=== PATIENT | male | born 1935 | race Caucasian/White ===

== ENCOUNTER → 2018-01-20 | Day surgery (SDC) | payer MEDICARE, BC ==
[2018-01-19 08:14] VITALS: BMI 26.4
[~2018-01-20] MED LIST: Fentanyl 100 MCG/2 ML VIAL ONE; Midazolam HCl 2 mg/2 ml Vial ONE
[2018-01-20 10:04] LABS: #Basophils 0.1 thou/uL (0.0-0.2); #Eosinphils 0.2 thou/uL (0.0-0.7); #Lymphocytes 2.1 thou/uL (1.20-3.40); #Monocytes 0.7 thou/uL (0.11-0.59); #Neutrophils 5.2 thou/uL (1.40-6.50); %Basophils 1.5 % (0.0-1.0); %Eosinophils 2.6 % (0.0-10.0); %Lymphocytes 24.9 % (21.0-51.0); %Monocytes 8.2 % (0.0-10.0); %Neutrophils 62.8 % (42.0-75.0); Hemoglobin 13.7 g/dL (14.0-18.0); Mean Corpuscular HGB CONC 34.5 g/dL (32.0-36.0); Mean Corpuscular Hemoglobin 33.4 pg (27.0-31.0); Mean Corpuscular Volume 96.8 fl (80.0-94.0); Mean Platelet Volume 6.7 fL (7.4-10.4); Platelet Count 215 thou/uL (130-400); RBC Distribution Width 11.8 % (11.5-14.5); Red Blood Cell (RBC) Count 4.12 mill/uL (4.70-6.10); White Blood Cell (WBC) Count 8.3 thou/uL (4.8-10.8)
[2018-01-20 10:24] LABS: Anion Gap 12 mmol/L (10-20); BUN (Urea Nitrogen) 17 mg/dL (8.4-25.7); Calc. Creatinine Clearance 72 mL/min (70-130); Calcium 9.2 mg/dL (7.8-10.44); Carbon Dioxide 26 mmol/L (23-31); Chloride 103 mmol/L (98-107); Estimated GFR-MDRD 69; Glucose 202 mg/dL (83-110); Potassium 4.5 mmol/L (3.5-5.1); Sodium 136 mmol/L (136-145)
--- NOTE | 2018-01-20 12:08 | RAD ---
LUMBAR SPINE THREE VIEWS: HISTORY: Low back pain. FINDINGS: Vertebral body heights are maintained. There is osteophytosis throughout the vertebral bodies and fa cets. Spondylolisthesis at the L4-L5 level is 0.4 cm while neutral and upon extension. It increases to 0.9 cm upon flexion. Disk space narrowing and minimal degenerative retrolisthesis at the L2-L3 level do es not change upon flexion or extension. There is calcification over the arterial structures. IMPRESSION: 1. Lumbar spondylosis with translational motion at the L4-L5 level, as detailed above. 2. Atherosclerosis. POS: JENNIFER
--- NOTE | 2018-01-20 14:09 | MRI ---
MRI LUMBAR SPINE WITHOUT CONTRAST: HISTORY: New onset low back pain. Bilateral foot numbness x6 months. COMPARISON: None. TECHNIQUE: An MRI of the lumbar spine is performed without intravenous Gadolinium administration. Multisequenti al, multiplanar imaging is performed. FINDINGS: Appropriate T1 marrow signal intensity of the lumbar vertebrae. Lumbar spine vertebral body height i s maintained. There is no fracture. No significant STIR hyperintensity to suggest edema or ligament ous injury. There is 4.4 mm of anterolisthesis of L4 upon L5. Symmetric signal intensity of the psoas muscles. Exophytic T2 hyperintensity emanating from the left kidney, compatible with a cyst. The conus medullaris terminates at the mid L1 level. T12-L1: Adequate disk hydration. No significant central canal stenosis or foraminal narrowing. L1-L2: Disk desiccation with minimal loss of disk space height. No significant posterior disk abnor mality. Ligamentum flavum thickening and facet hypertrophy are present. Overall, there is mild cent ral canal stenosis. Mild bilateral foraminal narrowing. L2-L3: Desiccation without significant loss of disk space height. Generalized disk bulge, ligamentu m flavum thickening, and facet hypertrophy result in mild central canal stenosis. Mild bilateral for aminal narrowing. L3-L4: Desiccation with mild loss of disk space height. No significant posterior disk abnormality. Mild ligamentum flavum thickening and facet hypertrophy are present. Mild central canal stenosis. Mild bilateral foraminal narrowing. L4-L5: Desiccation with mid loss of disk space height. Generalized disk bulge, ligamentum flavum th ickening, and spondylolisthesis results in severe central canal stenosis. There is bilateral facet h ypertrophy with a small amount of fluid in both intraarticular facet joints. Moderate bilateral for aminal narrowing. L5-S1: There is a central and left subarticular disk bulge. Disk material abuts and slightly displa luis miguel the traversing left S1 nerve root. There is a small linear T2 hyperintensity at the level of the disk bulge, suggesting an annular fissure. No high grade central canal stenosis. Mild right and mil d to moderate left foraminal narrowing. IMPRESSION: Degenerative changes of the lumbar spine at L4-L5 and at L5-S1 as detailed above. POS: JENNIFER
--- NOTE | 2018-01-22 08:53 | EKG ---
Test Reason : PREOP Blood Pressure : / mmHG Vent. Rate : 079 BPM Atrial Rate : 079 BPM P-R Int : 162 ms QRS Dur : 086 ms QT Int : 382 ms P-R-T Axes : -04 -27 041 degrees QTc Int : 438 ms Normal sinus rhythm Normal ECG When compared with ECG of 07-DEC-2013 08:37, Sinus rhythm has replaced Atrial flutter Confirmed by JOSELITO LOBATO, PARUL ([id number]) on 01/22/2018 8:52:49 AM Referred By: TINY Confirmed By:PARUL YEE MD
== END ==
LOC: SDC/OP 09:29
PROVIDERS: ATTEND Neurological Surgery
DX: M47.16 Other spondylosis with myelopathy, lumbar region (principal); I70.90 Unspecified atherosclerosis; Z88.8 Allergy status to other drugs, medicaments and biological substances; Z79.82 Long term (current) use of aspirin; Z79.4 Long term (current) use of insulin; Z79.899 Other long term (current) drug therapy
CPT/HCPCS: 36415; 72100; 72148; 80048; 85025; 93005; 93010; J2250; J3010

== ENCOUNTER 2019-01-23 11:46 | Outpatient (CLI) | payer MEDICARE, BC | END 2019-01-23 11:47 | disposition home or self-care (01) | LOC: CP 11:46 | PROVIDERS: ATTEND Internal Medicine Critical Care Medicine | DX: J84.10 Pulmonary fibrosis, unspecified (principal) | CPT/HCPCS: 94060; 94727 ==

== ENCOUNTER 2019-07-26 12:45 | Outpatient (CLI) | payer MEDICARE, BC ==
--- NOTE | 2019-07-26 13:04 | RAD ---
Exam: Chest 2 views HISTORY:Dyspnea Comparison: 09/05/2018 FINDINGS: Lungs: Bilateral interstitial prominence remains Cardiac silhouette:Stable Pulmonary vessels: No significant vascular congestion Pleural Spaces: Stable blunting of left lateral costophrenic sulcus with elevation of left hemidiaphr agm. Pneumothorax: None Osseous abnormalities: Stable chest, with findings that indicate chronic interstitial lung disease, s uch as pulmonary fibrosis. Correlate clinically. IMPRESSION: No focal consolidation.
== END 2019-07-26 12:46 | disposition home or self-care (01) ==
LOC: RAD 12:45
PROVIDERS: ATTEND Internal Medicine Critical Care Medicine
DX: R06.00 Dyspnea, unspecified (principal)
CPT/HCPCS: 71046

== ENCOUNTER 2019-12-05 16:02 | Outpatient (CLI) | payer MEDICARE, BC ==
[2019-12-05 16:59] LABS: Mean Corpuscular HGB CONC 33.2 g/dL (32.0-36.0); Mean Corpuscular Hemoglobin 31.7 pg (27.0-31.0); Mean Corpuscular Volume 95.5 fL (78.0-98.0); Mean Platelet Volume 7.7 fL (7.4-10.4); Platelet Count 188 thou/uL (130-400); RBC Distribution Width 12.2 % (11.5-14.5); Red Blood Cell (RBC) Count 4.11 mill/uL (4.70-6.10); White Blood Cell (WBC) Count 8.3 thou/uL (4.8-10.8)
[2019-12-05 17:08] LABS: PTT 30.7 SEC (22.9-36.1); Prothrombin Time 13.3 SEC (12.0-14.7)
[2019-12-05 17:16] LABS: Bacteria/HPF None Seen HPF (None Seen); Bilirubin Negative (Negative); Blood, Urine 1+ (Negative); Clarity Clear (Clear); Glucose, Urine (Dipstick) Normal (Negative); Leukocyte Negative Leu/uL (Negative); Nitrite Negative (Negative); Protein, Urine (Dipstick) Negative (Neg-Trace); Squamous Epithelial 0-3 HPF (0-3); Urobilinogen Normal mg/dL (Less than 2)
[2019-12-05 17:33] LABS: Anion Gap 14 mmol/L (10-20); BUN (Urea Nitrogen) 15 mg/dL (8.4-25.7); Calc. Creatinine Clearance 0 mL/min (70-130); Calcium 9.5 mg/dL (7.8-10.44); Carbon Dioxide 26 mmol/L (23-31); Chloride 104 mmol/L (98-107); Estimated GFR-MDRD 69; Glucose 66 mg/dL (83-110); Potassium 3.9 mmol/L (3.5-5.1); Sodium 140 mmol/L (136-145)
== END 2019-12-05 16:03 | disposition home or self-care (01) ==
LOC: LABBT 16:02
PROVIDERS: ATTEND Urology
DX: Z01.818 Encounter for other preprocedural examination (principal); N40.1 Benign prostatic hyperplasia with lower urinary tract symptoms; N39.41 Urge incontinence; R39.12 Poor urinary stream
CPT/HCPCS: 80048; 81001; 85027; 85610; 85730; 87086; 93005; 93010

== ENCOUNTER 2019-12-14 06:41 | Day surgery (SDC) | payer MEDICARE, BC ==
[2019-12-05 17:04] VITALS: BMI 25.7
[2019-12-14] MEDS ORDERED: Levofloxacin 500 mg/D5W 100 ml Premix Bag ONE (07:42)
[2019-12-14] MEDS ORDERED: Midazolam HCl 2 mg/2 ml Vial ONE (07:42)
[2019-12-14] MEDS ORDERED: B & O ONE (10:02)
[2019-12-14] MEDS ORDERED: PROPOFOL 200 MG/20 ML VIAL ONE (10:21)
[2019-12-14] MEDS ORDERED: Phenazopyridine HCl 97.5 MG TABLET ONE (12:01)
[2019-12-14] MEDS ORDERED: Oxybutynin 5 MG TAB ONE (12:01)
--- NOTE | 2019-12-14 23:36 | OP ---
DATE OF PROCEDURE: 12/14/2019 SERVICE: Urology. PREOPERATIVE DIAGNOSIS: BPH with urinary obstruction. POSTOPERATIVE DIAGNOSIS: BPH with urinary obstruction. PROCEDURE PERFORMED: UroLift with 4 implants. INDICATIONS FOR PROCEDURE: Mr. Adrian is an 84-year-old white male with BPH and urinary complaints. He is not satisfied in his current medical regimen. He elected to proceed forward with a UroLift implant surgery. Risks and benefits of the surgery were discussed and he has agreed to proceed forward. DESCRIPTION OF PROCEDURE: After identification of armband and verification of consent, patient was brought back to the operating room, where he underwent total intravenous anesthesia. He was then placed in dorsal lithotomy position and prepped and draped in usual sterile fashion. After appropriate time-out, a lubricated 21-Bruneian rigid cystoscope was introduced per urethra into the bladder. A cystoscopy demonstrated a normal bladder with a BPH as previously had been described on outpatient cystoscopy. The visual obturator was switched out for a UroLift implantation device. The first implant was placed at the patient's left proximal bladder approximately 1.5 to 2 cm away from the bladder neck. Lateral compression was achieved by about 20 degrees with an anterior lift. Once I was happy with the positioning, the safety was released and the blue trigger fired to deploy the Nitinol needle. The capsular tab was then set with tensioning using the gillis trigger and then the UroLift device advanced forward until the white line was in the keyhole at which point, the urethral end piece was deployed using the blue release tab on the back. This resulted in nice compression of the lateral aspect of the prostate. This was then repeated on the patient's right side towards the bladder neck and then 2 additional implants at the patient's apex on the left and right side. Upon completion, the prostate appeared wide open. There was a nice channel anteriorly all the way up to the bladder neck. Satisfied that the patient was completely open, I did not feel any further implants were necessary. The bladder was left partially filled and the cystoscope removed. An 18-Bruneian Prieto catheter was placed into the patient's bladder with ease. 10 mL of sterile water placed into the balloon. The patient then had B and O suppository placed, was taken out of positioning, awakened, taken back to Day Stay for recovery in stable condition. COMPLICATIONS: None. ESTIMATED BLOOD LOSS: Minimal. RETAINED TUBES AND DRAINS: An 18-Bruneian Prieto catheter. SPECIMENS: None. IMPLANTS USED: Four. DISPOSITION: Patient will undergo a void trial in Day Stay. He will then be discharged either with or without a catheter based on his void trial and the amount of hematuria in his urine. Job ID: [id number]
== END 2019-12-14 13:20 | disposition home or self-care (01) ==
LOC: SDC 06:41
PROVIDERS: ATTEND Urology
PROC: 0T7D8DZ Dilation of Urethra with Intraluminal Device, Via Natural or Artificial Opening Endoscopic (ICD-10-PCS; principal; 2019-12-14)
DX: N40.1 Benign prostatic hyperplasia with lower urinary tract symptoms (principal); N13.8 Other obstructive and reflux uropathy; R39.12 Poor urinary stream; N39.41 Urge incontinence; E11.9 Type 2 diabetes mellitus without complications; E78.5 Hyperlipidemia, unspecified; E03.9 Hypothyroidism, unspecified; F32.9 Major depressive disorder, single episode, unspecified; I48.91 Unspecified atrial fibrillation; I11.0 Hypertensive heart disease with heart failure; I50.9 Heart failure, unspecified; I25.10 Atherosclerotic heart disease of native coronary artery without angina pectoris; Z79.82 Long term (current) use of aspirin; Z79.84 Long term (current) use of oral hypoglycemic drugs; Z79.899 Other long term (current) drug therapy; Z95.1 Presence of aortocoronary bypass graft; Z98.52 Vasectomy status; Z98.890 Other specified postprocedural states; Z87.891 Personal history of nicotine dependence; Z88.5 Allergy status to narcotic agent; Z88.8 Allergy status to other drugs, medicaments and biological substances
CPT/HCPCS: 52441; 52442 ×3; 82962; C1889; 36416; J1956; J2250; J2704

== ENCOUNTER 2020-02-18 14:30 | Outpatient (CLI) | payer MEDICARE, BC ==
--- NOTE | 2020-02-18 15:05 | RAD ---
Chest 2 views HISTORY: Dyspnea. COMPARISON: 07/26/2019. FINDINGS: Cardiac silhouette and pulmonary vasculature are unremarkable. Severe widespread and symmetric interstitial thickening throughout each lung with the appearance of f ibrosis is similar in appearance to the prior study. Mediastinum is midline with aortic calcification and postoperative changes. No lobar consolidation, pleural fluid, or pneumothorax. IMPRESSION : Severe, symmetric fibrotic disease and other findings appear unchanged. Atherosclerosis.
== END 2020-02-18 14:31 | disposition home or self-care (01) ==
LOC: RAD 14:30
PROVIDERS: ATTEND Internal Medicine Critical Care Medicine
DX: R06.00 Dyspnea, unspecified (principal); I70.90 Unspecified atherosclerosis; R91.8 Other nonspecific abnormal finding of lung field
CPT/HCPCS: 71046

== ENCOUNTER 2020-10-20 17:04 | Observation (INO) | payer MEDICARE ==
[2020-10-20 21:52] VITALS: BMI 20.3
[2020-10-20] MEDS ORDERED: Labetalol HCl 100 MG/20 ML VIAL SLOW IVP PRN (22:55)
[2020-10-20] MEDS ORDERED: hydrALAZINE 20 MG/ML VIAL SLOW IVP PRN (22:55)
[2020-10-20] MEDS ORDERED: HumaLOG 300 UNITS/3 ML VIAL SC PRN (22:59)
[2020-10-20] MEDS ORDERED: Dextrose 5% in Water 1,000 ML IV PRN (22:59)
[2020-10-20] MEDS ORDERED: Dextrose 50% Abboject 50 ML SYRINGE SLOW IVP PRN (22:59)
[2020-10-20] MEDS ORDERED: Ondansetron ODT 4 MG TAB PO PRN (23:00)
[2020-10-20] MEDS ORDERED: Acetaminophen 325 MG TAB PO PRN (23:00)
--- NOTE | 2020-10-20 23:36 | PDOC.HHP ---
Hospitalist HPI - History of Present Illness Left hand numbness and weakness History of Present Illness: The patient is an 85-year-old male with past medical history significant for CAD, DM 2, HTN, HLD and hypothyroidism that presents to the hospital via EMS as a transfer from [place] emergency department for TIA. The patient reports the acute onset of left hand numbness and weakness at approximately 1:00 the afternoon prior to admission to our hospital. He reports that he was attempting to grab his toast, when his left hand "would not do what I wanted to do". While he could have driven himself to the hospital, he had his grandson take him in a personal vehicle. Upon arrival to the hospital, the patient reported that his symptoms had resolved. He denies any recent fall or trauma. He denies any headache, changes in vision, difficulty speaking. Denies any recent changes to his medications. Denies any recent fever or illness. No known sick contacts. No loss of smell or taste. Denies any dysuria or hematuria. Denies abdominal pain, nausea, vomiting, diarrhea. Denies any chest pain, heart palpitations, lightheadedness or swelling to lower extremities. Denies any shortness of breath, wheezing, COPD/asthma, DVT/PE. ED Course: [place] emergency department: The patient presented hypertensive with a blood pressure 207/103, with normal HR, RR, SPO2, afebrile. Per nursing, the patient has "white coat syndrome" and his blood pressure came down spontaneously to within normal limits. CT brain negative for any acute process EKG normal sinus rhythm 73 bpm Sodium 138, potassium 4.2, BUN 16, creatinine 1.16 Glucose 135 LFTs unremarkable PT 13.6, INR 1.0 WBC 8.1, hemoglobin 15.1, hematocrit 45.7, platelets 280 Medication administration: None Hospitalist ROS - Review of Systems All other systems reviewed; all pertinent +/- noted in HPI/Subj - Medication Medications: Medication Instructions Recorded Confirmed Type Aspirin Chewable [Aspirin Chewable 81 mg PO QAM 11/29/13 02/19/20 History Tablet] Atorvastatin Calcium [Lipitor] 40 mg PO QPM 11/29/13 02/19/20 History Tamsulosin HCl [Flomax] 0.4 mg PO HS 11/29/13 02/19/20 History metFORMIN HCl 1,000 mg PO BID-WM 11/29/13 02/19/20 History Insulin Glargine,Hum.Rec.Anlog 40 unit SQ HS 12/05/19 02/19/20 History [Basaglar Taishaikpen U-100] Mirtazapine 15 mg PO HS 12/05/19 02/19/20 History Pantoprazole [Protonix] 40 mg PO DAILY 12/05/19 02/19/20 History glipiZIDE [Glipizide] 5 mg PO DAILY 12/05/19 02/19/20 History Levothyroxine Sodium 125 mcg PO DAILY 10/20/20 10/20/20 History [Levothyroxine] Allergies pioglitazone HCl [From Actos] Allergy (Unknown, Verified 02/19/20 01:57) Stomach Ache morphine Allergy (Verified 02/19/20 01:57) Headache 10/20/20 23:00 Resuscitation Status Routine Co-Sign Provider: Resuscitation Status: FULL: Full Resuscitation Discussed with: patient Hospitalist History - Past Medical History Source: patient, RN notes reviewed Cardiac: reports: CAD, HTN, Hyperlipidemia Gastrointestinal: reports: GERD Renal/: reports: Benign prostatic enlarg. Endocrine: reports: Diabetes (Type II), Hypothyroidism - Past Surgical History Past Surgical History: reports: Other (Thyroid tumor surgery) - Family History Family History: denies: cerebrovascular accident - Social History Smoking Status: Current some day smoker Tobacco Type: cigars Alcohol: reports: None Living Situation: Alone Activity level: independent ambulation - Exam General Appearance: NAD, awake alert. negative: ill appearing General - other findings: Hard of hearing, glasses Eye: PERRL, anicteric sclera ENT: normocephalic atraumatic, dry oral mucosa Neck: supple, no lymphadenopathy, no carotid bruit Heart: RRR, no murmur, no gallops, no rubs, normal peripheral pulses Respiratory: CTAB, no wheezes, no rales, no ronchi, normal chest expansion, no tachypnea Gastrointestinal: soft, non-tender, non-distended, normal bowel sounds, no guarding, no rigidity Extremities: no cyanosis, no edema Skin: no rashes Neurological: cranial nerve grossly intact, no focal deficits Musculoskeletal: normal tone, normal strength Psychiatric: normal affect, A&O x 3 Hospitalist Results - EKG Interpretation [place] [facility] [place] CT scan - head Status: report reviewed by me Additional Comment: No acute intracranial process Hospitalist H&P A/P - Problem (1) TIA (transient ischemic attack) Code(s): G45.9 - TRANSIENT CEREBRAL ISCHEMIC ATTACK, UNSPECIFIED Status: Acute (2) Numbness and tingling in left hand Code(s): R20.0 - ANESTHESIA OF SKIN; R20.2 - PARESTHESIA OF SKIN Status: Acute (3) HTN (hypertension) Code(s): I10 - ESSENTIAL (PRIMARY) HYPERTENSION Status: Chronic (4) HLD (hyperlipidemia) Code(s): E78.5 - HYPERLIPIDEMIA, UNSPECIFIED Status: Chronic (5) DM2 (diabetes mellitus, type 2) Status: Chronic (6) GERD (gastroesophageal reflux disease) Code(s): K21.9 - GASTRO-ESOPHAGEAL REFLUX DISEASE WITHOUT ESOPHAGITIS Status: Chronic (7) Hypothyroidism Code(s): E03.9 - HYPOTHYROIDISM, UNSPECIFIED Status: Chronic (8) BPH (benign prostatic hyperplasia) Code(s): N40.0 - BENIGN PROSTATIC HYPERPLASIA WITHOUT LOWER URINRY TRACT SYMP Status: Chronic - Plan Plan: #TIA In [place], documented NIH 1 for left facial droop? - no medications given. Give full dose aspirin, start high intensity statin. Order MRI, carotid ultrasound, echocardiogram Consult neurology and PT Check TSH, FLP, mag, UA, folate B12. Neurochecks. Permissive hypertension. #Numbness and tingling of left hand Per patient, resolved [employer]. Likely related to problem #1. #HTN Upon assessment, normotensive. #DM2 Takes metformin, glipizide and Basaglar at home. Hold metformin and glipizide. Restart Basaglar 20 units nightly. Accu-Cheks AC at bedtime. Moderate ISS. #GERD Restart home dose Protonix #Hypothyroidism Check TSH. Restart home dose levothyroxine. #BPH Restart home dose Flomax. SCDs for DVT prophylaxis. Protonix for GI prophylaxis. CODE STATUS is full code. Discussed the case with Dr. Hancock, attending physician who agrees with plan of care
[2020-10-20 23:50] LABS: Troponin I 0.013 ng/mL (< 0.028)
[2020-10-20] MEDS ORDERED: Atorvastatin Calcium 40 MG TAB PO SCH (23:59)
[2020-10-20] MEDS ORDERED: Aspirin 325 MG TAB PO SCH (23:59)
[2020-10-21 04:54] LABS: #Basophils 0.1 thou/uL (0.0-0.2); #Eosinphils 0.9 thou/uL (0.0-0.7); #Lymphocytes 2.7 thou/uL (1.20-3.40); #Neutrophils 4.3 thou/uL (1.40-6.50); %Basophils 1.3 % (0.0-1.0); %Eosinophils 10.5 % (0.0-10.0); %Lymphocytes 29.9 % (21.0-51.0); %Monocytes 10.6 % (0.0-10.0); %Neutrophils 47.7 % (42.0-75.0); Hemoglobin 12.7 g/dL (14.0-18.0); Mean Corpuscular HGB CONC 32.8 g/dL (32.0-36.0); Mean Corpuscular Hemoglobin 31.9 pg (27.0-31.0); Mean Corpuscular Volume 97.4 fL (78.0-98.0); Mean Platelet Volume 7.2 fL (7.4-10.4); Platelet Count 247 thou/uL (130-400); RBC Distribution Width 12.9 % (11.5-14.5); Red Blood Cell (RBC) Count 3.96 mill/uL (4.70-6.10); White Blood Cell (WBC) Count 8.9 thou/uL (4.8-10.8)
[2020-10-21 05:25] LABS: Anion Gap 13 mmol/L (10-20); BUN (Urea Nitrogen) 18 mg/dL (8.4-25.7); Calc. Creatinine Clearance 53 mL/min (70-130); Calcium 8.9 mg/dL (7.8-10.44); Carbon Dioxide 28 mmol/L (23-31); Chloride 100 mmol/L (98-107); Cholesterol 125 mg/dl (< 200 Desired); Glucose 223 mg/dL (83-110); HDL Cholesterol 41 mg/dL (>60 Neg Risk); LDL Cholesterol, Calculated 61 mg/dL; Magnesium 1.6 mg/dL (1.6-2.6); Potassium 3.9 mmol/L (3.5-5.1); Sodium 137 mmol/L (136-145); Triglycerides 117 mg/dL (Less than 150)
[2020-10-21 05:43] LABS: Thyroid Stimulating Hormone 10.4987 uIU/mL (0.35-4.94)
[2020-10-21 05:45] LABS: Vitamin B12 Greater than 2000 pg/mL (211-911)
[2020-10-21] MEDS ORDERED: Levothyroxine Sodium 125 MCG TAB PO SCH (06:00)
[2020-10-21] MEDS: HumaLOG 300 UNITS/3 ML VIAL SC PRN ×2 (06:25→14:12)
--- NOTE | 2020-10-21 07:49 | RAD ---
Chest one view HISTORY: Chest pain. COMPARISON: 02/19/2020. FINDINGS: Cardiac silhouette is magnified by projection. Pulmonary vascular predominantly obscured by ill-defined patchy areas of interstitial and airspace opacity throughout each lung. Coarsened interstitial thickening is also favored to have increased somewhat. Mediastinum is midline with postoperative changes and aortic calcification. No evidence of pneumothorax. IMPRESSION : In addition to patchy bilateral infiltrates, interstitial thickening/fibrosis is favored to have wors ened since the 02/19/2020 exam. Correlate for COVID pneumonitis. Please consider short-term follow-up with upright PA and lateral views of the chest after medical kenisha atment.
[2020-10-21] MEDS ORDERED: Lorazepam 1 MG TAB PO SCH (08:15)
--- NOTE | 2020-10-21 08:31 | ULT ---
US Carotid Doppler STANDARD History: Transient ischemic attack Comparison: Ultrasound 2013 Findings: Real-time grayscale, color and spectral analysis of the extracranial carotid and vertebral arteries was performed. No elevated peak systolic velocities within the internal carotid arteries. Antegrade flow both verteb ral arteries. Impression: No hemodynamically significant stenosis.
[2020-10-21] MEDS ORDERED: Aspirin 81 mg Enteric Coated Tablet PO SCH (09:00)
[2020-10-21 09:14] LABS: Bacteria/HPF None Seen HPF (None Seen); Bilirubin Negative (Negative); Blood, Urine Negative (Negative); Clarity Clear (Clear); Glucose, Urine (Dipstick) 100 mg/dL (Negative); Ketone, Urine Negative (Negative); Leukocyte Negative Leu/uL (Negative); Nitrite Negative (Negative); Protein, Urine (Dipstick) 10 mg/dL (Neg-Trace); RBC/HPF 0-3 HPF (0-3); Squamous Epithelial 0-3 HPF (0-3); Urobilinogen Normal mg/dL (Less than 2); WBC/HPF 0-3 HPF (0-3)
--- NOTE | 2020-10-21 12:31 | MRI ---
MRI BRAIN WITHOUT CONTRAST: Date: 10/21/2020 HISTORY: Generalized weakness. TIA. Left-sided weakness. FINDINGS: Correlation is made with previous day's CT scan. No restricted diffusion is seen. There is cortical atrophy. There are foci of increased T2 signal in the periventricular and subcortical white matter consistent with chronic small vessel ischemic diseas e. The ventricular size is appropriate and the basilar cisterns are patent. No evidence of acute infarct, hemorrhage, midline shift, or abnormal extra-axial fluid collections ar e seen. There is mild mucosal disease in the paranasal sinuses. The focal area of increased signal ab normality in the FLAIR images in the inferior right frontal lobe consistent with gliosis and no surro unding edema is smaller compared to the exam of 12/07/2013. IMPRESSION: No evidence of acute intracranial process. POS: AH
[2020-10-21 13:28] VITALS: TEMP 97.3
[2020-10-21 14:06] VITALS: BP 162/84
[2020-10-21 14:17] LABS: SARS-CoV-2 PCR by NAA Not Detected (NotDetected)
--- NOTE | 2020-10-21 14:39 | CON ---
NEUROLOGY CONSULTATION DATE OF CONSULTATION: 10/21/2020 REASON FOR CONSULTATION: Transient ischemic attack/left hand numbness and weakness. HISTORY OF PRESENT ILLNESS: Mr. Adrian is an 85-year-old male with medical history significant for coronary artery disease, diabetes mellitus, hypertension, hyperlipidemia, and hypothyroidism, who presented to the hospital as a transfer from [place] [facility] via EMS for evaluation of transient ischemic attack. The patient reports acute onset numbness and weakness in the left hand, which started around 1 p.m. on 10/20/2020. He was trying to grab his toes, and all of a sudden, he was unable pick it up. His grandson took him to the hospital on his personal vehicle and at that time, the symptoms resolved. The patient denies any focal weakness, focal paresthesias, nausea, vomiting, headache, double vision, change in vision, difficulty speaking, difficulty swallowing, loss of vision, vertigo, dizziness, or loss of consciousness, abdominal pain, or chest pain associated with the episode. He denies any recent sick contacts or recent exposure with the COVID. In the [place] emergency room, head CT was done, which was negative for acute intracranial process. He was found to be in hypertensive emergency with blood pressure of 207/103. EKG showed normal sinus rhythm. REVIEW OF SYSTEMS: All other systems reviewed and were negative except the pertinent positives and negatives mentioned in the HPI. HOME MEDICATIONS: Medication Instructions Recorded Confirmed Type Aspirin Chewable [Aspirin Chewable 81 mg PO QAM 11/29/13 02/19/20 History Tablet] Atorvastatin Calcium [Lipitor] 40 mg PO QPM 11/29/13 02/19/20 History Tamsulosin HCl [Flomax] 0.4 mg PO HS 11/29/13 02/19/20 History metFORMIN HCl 1,000 mg PO BID- 11/29/13 02/19/20 History Insulin Glargine,Hum.Rec.Anlog 40 unit SQ HS 12/05/19 02/19/20 History [Alexaaglneeraj Ortiz U-100] Mirtazapine 15 mg PO HS 12/05/19 02/19/20 History Pantoprazole [Protonix] 40 mg PO DAILY 12/05/19 02/19/20 History glipiZIDE [Glipizide] 5 mg PO DAILY 12/05/19 02/19/20 History Levothyroxine Sodium 125 mcg PO DAILY 10/20/20 10/20/20 History [Levothyroxine] ALLERGIES: PIOGLITAZONE AND MORPHINE. PAST MEDICAL HISTORY: Coronary artery disease, hypertension, hyperlipidemia, gastroesophageal reflux disease, BPH, type 2 diabetes mellitus, and hypothyroidism. PAST SURGICAL HISTORY: Thyroid tumor surgery. FAMILY HISTORY: No family history of stroke. SOCIAL HISTORY: The patient lives alone currently. He does smoke. He denies alcohol or illegal drug use. Independent ambulation. PHYSICAL EXAMINATION: 180/90 88 18 General Appearance: NAD, awake alert. negative: ill appearing Eye: PERRL, anicteric sclera ENT: normocephalic atraumatic, dry oral mucosa Neck: supple, no lymphadenopathy, no carotid bruit Heart: RRR, no murmur, no gallops, no rubs, normal peripheral pulses Respiratory: CTAB, no wheezes, no rales, no ronchi, normal chest expansion, no tachypnea Gastrointestinal: soft, non-tender, non-distended, normal bowel sounds, no guarding, no rigidity Extremities: no cyanosis, no edema Skin: no rashes Neurological: Mental status, the patient is alert and oriented to person, place, and time. Speech is clear. Cranial nerves 2 through 12 intact. Motor, muscle tone and bulk are normal. Strength 5/5 bilaterally. Sensory intact. Cerebellar, finger-nose testing intact. Gait deferred due to the patient's safety reasons. DATA REVIEWED: I reviewed the EKG, which showed normal sinus rhythm with a head CT reviewed which was negative for acute intracranial pathology. MRI did not show acute intracranial process. ASSESSMENT AND PLAN: (1) TIA (transient ischemic attack) Code(s): G45.9 - TRANSIENT CEREBRAL ISCHEMIC ATTACK, UNSPECIFIED Status: Acute (2) Numbness and tingling in left hand Code(s): R20.0 - ANESTHESIA OF SKIN; R20.2 - PARESTHESIA OF SKIN Status: Acute (3) HTN (hypertension) Code(s): I10 - ESSENTIAL (PRIMARY) HYPERTENSION Status: Chronic (4) HLD (hyperlipidemia) Code(s): E78.5 - HYPERLIPIDEMIA, UNSPECIFIED Status: Chronic (5) DM2 (diabetes mellitus, type 2) Status: Chronic (6) GERD (gastroesophageal reflux disease) Code(s): K21.9 - GASTRO-ESOPHAGEAL REFLUX DISEASE WITHOUT ESOPHAGITIS Status: Chronic (7) Hypothyroidism Code(s): E03.9 - HYPOTHYROIDISM, UNSPECIFIED Status: Chronic (8) BPH (benign prostatic hyperplasia) Code(s): N40.0 - BENIGN PROSTATIC HYPERPLASIA WITHOUT LOWER URINRY TRACT SYMP Status: Chronic Mr. Adrian is 85-year-old male, who presented to the emergency room with left facial droop, NIH of 1, which resolved on its own. He was given full dose of aspirin and started high-intensity statin. Continue full-dose aspirin and high-intensity statin for secondary stroke prevention. MRI of the brain reviewed, which was negative for acute intracranial process. Carotid Dopplers did not reveal hemodynamically significant stenosis. 2D echocardiogram from 02/19/2020 reviewed, which showed normal ejection fraction and no thrombus or PFO. Telemetry to rule out arrhythmias. Neuro checks every 4 hours. PT/OT/speech. Strict control of blood pressure and blood glucose. Continue home medications. Continue medical management per primary team. Plan discussed in detail with the patient, daughter at bedside and also with the primary attending, Dr. Reynaga. Job ID: [id number] [facility]ITALE[facility]io
--- NOTE | 2020-10-21 17:41 | PDOC.DS.DS ---
Provider - Provider Date of Admission: 10/20/20 17:04 Date of Discharge: 10/21/20 Admitting Provider: Ezequiel Araya MD Consultations: Neurology Primary Care Physician: Carloz Cochran MD Course - Hospital Course Hospital Course: Patient is a 85-year-old male with coronary artery disease status post CABG, hypertension and diabetes mellitus type 2 presented to the emergency room with left hand numbness along with weakness of 1 day duration. Please refer to the history and physical for further details. The patient was admitted to the hospital with a diagnosis of transient ischemic attack rule out CVA. He was monitored in the stroke unit. He was started on aspirin along with statins. Initial CT scan of the brain was negative for acute findings. MRI of the brain was negative for acute CVA. Carotid Doppler was negative for hemodynamically significant stenosis. Echocardiogram showed ejection fraction 60 to 65% with diastolic dysfunction, mild mitral regurgitation and trace tricuspid regurgitation. Patient was evaluated by neur ology. Neurology recommended aspirin along with statins. Please note that patient does not take aspirin at home. He was extensively counseled on taking antiplatelet agent given his extensive cardiac history. He has been cleared by neurology for discharge. Final diagnosis: Transient ischemic attack Diabetes mellitus type 2 Hypertension Hyperlipidemia Diabetes mellitus type 2 GERD Hypothyroidism Benign prostatic hypertrophy CKD stage II Resuscitation Status: 10/20/20 23:00 Resuscitation Status Routine Co-Sign Provider: Resuscitation Status: FULL: Full Resuscitation Discussed with: patient - Labs Lab Results: 10/21/20 04:44 10/21/20 04:44 Abnormal Lab Results - Last 48 hrs 10/21/20 04:44: Vitamin B12 Greater than 2000 H, TSH 3rd Generation 10.4987 H 10/21/20 04:44: RBC 3.96 L, Hgb 12.7 L, Hct 38.6 L, MCH 31.9 H, MPV 7.2 L, Monocytes % 10.6 H, Eosinophils % 10.5 H, Basophils % 1.3 H, Monocytes # 1.0 H, Eosinophils # 0.9 H 10/21/20 08:45: Urine Glucose (UA) 100 A - Physical Exam Vitals: Vital Signs (12 hours) Temp Pulse Pulse Pulse Resp BP BP 10/21/20 13:28 97.3 F L 86 18 10/21/20 11:06 80 74 162/84 H 182/93 H 10/21/20 07:50 97.5 F L 80 22 H BP Pulse Ox 10/21/20 13:28 142/80 H 98 10/21/20 11:06 10/21/20 07:50 160/100 H 97 Weight Weight 158 lb 4.8 oz Physical Exam: The patient was seen and examined on the day of discharge. Plan - Discharge Medications Prescriptions: Aspirin [Ecotrin Low Strength] 81 mg PO DAILY #30 tab Magnesium Chloride [Slow-Mag] 64 mg PO BID #60 tab Home Medications: Medication Instructions Recorded Confirmed Type Atorvastatin Calcium [Lipitor] 40 mg PO QPM 11/29/13 10/20/20 History Tamsulosin HCl [Flomax] 0.4 mg PO HS 11/29/13 10/20/20 History metFORMIN HCl 500 mg PO BID- 11/29/13 10/20/20 History Insulin Glargine,Hum.Rec.Anlog 20 unit SQ HS 12/05/19 10/20/20 History [Basaglar Kwikpen U-100] Mirtazapine 15 mg PO HS 12/05/19 10/20/20 History Pantoprazole [Protonix] 40 mg PO DAILY 12/05/19 10/20/20 History glipiZIDE [Glipizide] 5 mg PO BID 12/05/19 10/20/20 History Levothyroxine Sodium 125 mcg PO DAILY 10/20/20 10/20/20 History [Levothyroxine] Aspirin [Ecotrin Low Strength] 81 mg PO DAILY #30 tab 10/21/20 Rx Magnesium Chloride [Slow-Mag] 64 mg PO BID #60 tab 10/21/20 Rx Allergies: pioglitazone HCl [From Actos] Allergy (Unknown, Verified 10/20/20 23:39) Stomach Ache morphine Allergy (Verified 10/20/20 23:39) Headache sitagliptin Allergy (Verified 10/20/20 23:39) - Discharge Instructions Discharge Instructions:: Follow up on Echo report - Follow up Plan Referrals: Beny Alarcon MD [Active] - Alexey Shaw MD [Active] - 14 Days Disposition: HOME Quality - Care Measures CORE MEASURES:: Stroke/TIA - Stroke/TIA Did you prescribe antithrombotic therapy?: Yes Did you prescribe anticoagulant for A Fib/Flutter?: No Specify reason for no DC anticoagulant: Treatment not indicated Did you prescribe a statin medication?: Yes
[2020-10-21] MEDS ORDERED: Non-Formulary Item 1 EACH (Insulin Glargine,Hum.Rec.Anlog [Basaglar Kwikpen U-100] 100 UN SQ SCH (21:00)
[2020-10-21] MEDS ORDERED: Insulin Glargine 20 UNITS in Pre-Filled Syringe 1 EACH SC SCH (21:00)
[2020-10-21] MEDS ORDERED: Atorvastatin Calcium 40 MG TAB PO SCH (21:00)
[2020-10-21] MEDS ORDERED: Tamsulosin HCl 0.4 MG CAP PO SCH (21:00)
== END 2020-10-21 15:26 | disposition home or self-care (01) ==
LOC: 2SE 17:04
PROVIDERS: ADMIT Internal Medicine; ATTEND Internal Medicine
DX: G45.9 Transient cerebral ischemic attack, unspecified (principal); I12.9 Hypertensive chronic kidney disease with stage 1 through stage 4 chronic kidney disease, or unspecified chronic kidney disease; E11.22 Type 2 diabetes mellitus with diabetic chronic kidney disease; N18.2 Chronic kidney disease, stage 2 (mild); E78.5 Hyperlipidemia, unspecified; K21.9 Gastro-esophageal reflux disease without esophagitis; E03.9 Hypothyroidism, unspecified; N40.0 Benign prostatic hyperplasia without lower urinary tract symptoms; I25.10 Atherosclerotic heart disease of native coronary artery without angina pectoris; F17.290 Nicotine dependence, other tobacco product, uncomplicated; I34.0 Nonrheumatic mitral (valve) insufficiency; Z79.4 Long term (current) use of insulin; Z79.899 Other long term (current) drug therapy; Z88.5 Allergy status to narcotic agent; Z88.8 Allergy status to other drugs, medicaments and biological substances; Z20.822 Contact with and (suspected) exposure to COVID-19
CPT/HCPCS: 70551; 71045; 80048; 80061; 81001; 82607; 82746; 82962; 83735; 84443; 84484; 85025; 93306; 93880; 97139; U0003; U0005; 36415; 36416; 87635; G0378; J1815

== ENCOUNTER 2020-11-14 08:06 | Day surgery (SDC) | payer MEDICARE ==
[2020-11-13 11:33] VITALS: BMI 21.2
[2020-11-14] MEDS ORDERED: Fentanyl 100 MCG/2 ML VIAL ONE ×2 (08:39→12:34)
[2020-11-14] MEDS ORDERED: Famotidine/PF 20 mg/2ml Vial ONE (08:40)
[2020-11-14] MEDS ORDERED: Levofloxacin 500 mg/D5W 100 ml Premix Bag ONE (09:34)
[2020-11-14] MEDS ORDERED: B & O ONE (10:53)
[2020-11-14] MEDS ORDERED: Vancomycin 1 GM/200 ML BAG ONE (10:57)
[2020-11-14] MEDS ORDERED: Labetalol HCl 100 MG/20 ML VIAL ONE (12:33)
[2020-11-14] MEDS ORDERED: Metoclopramide HCl 10 MG/2 ML VIAL ONE (13:25)
[2020-11-14] MEDS ORDERED: Lidocaine 1% PF 5 ML VIAL ONE (13:25)
[2020-11-14] MEDS ORDERED: Ondansetron PF 4 MG/2 ML Vial ONE (13:25)
[2020-11-14] MEDS ORDERED: PHENYLEPHRINE-NS 100 MCG/ML 10 ML SYRINGE ONE (13:25)
[2020-11-14] MEDS ORDERED: PROPOFOL 200 MG/20 ML VIAL ONE (13:25)
== END 2020-11-14 14:39 | disposition home or self-care (01) ==
LOC: SDC 08:06
PROVIDERS: ATTEND Urology
PROC: 0V507ZZ Destruction of Prostate, Via Natural or Artificial Opening (ICD-10-PCS; principal; 2020-11-14)
DX: N40.1 Benign prostatic hyperplasia with lower urinary tract symptoms (principal); N13.8 Other obstructive and reflux uropathy; K59.00 Constipation, unspecified; I11.0 Hypertensive heart disease with heart failure; I50.9 Heart failure, unspecified; E03.9 Hypothyroidism, unspecified; E11.9 Type 2 diabetes mellitus without complications; I25.10 Atherosclerotic heart disease of native coronary artery without angina pectoris; F32.9 Major depressive disorder, single episode, unspecified; I48.91 Unspecified atrial fibrillation; Z79.82 Long term (current) use of aspirin; Z79.84 Long term (current) use of oral hypoglycemic drugs; Z88.5 Allergy status to narcotic agent; Z88.8 Allergy status to other drugs, medicaments and biological substances; Z95.1 Presence of aortocoronary bypass graft
CPT/HCPCS: 36416; J1956; J2405; J2704; J2765; J3010; J3370; S0028

== ENCOUNTER 2021-01-15 10:40 | Outpatient (CLI) | payer MEDICARE ==
[2021-01-15 11:31] LABS: Estimated GFR-MDRD - POC Greater than 90
[2021-01-15] MEDS ORDERED: Iopamidol-370 76% 500 ML 1 ML ONE (13:01)
== END 2021-01-15 10:41 | disposition home or self-care (01) ==
LOC: BICCT 10:40
PROVIDERS: ATTEND Internal Medicine Gastroenterology
DX: R14.2 Eructation (principal); R10.13 Epigastric pain; R63.4 Abnormal weight loss; N28.1 Cyst of kidney, acquired; N20.0 Calculus of kidney; N32.89 Other specified disorders of bladder; J47.9 Bronchiectasis, uncomplicated
CPT/HCPCS: 71260; 74177; 82565; Q9967

== ENCOUNTER 2021-01-21 11:53 | Outpatient (CLI) | payer MEDICARE | END 2021-01-21 11:54 | disposition home or self-care (01) | LOC: BICRAD 11:53 | PROVIDERS: ATTEND Internal Medicine Critical Care Medicine | DX: R06.00 Dyspnea, unspecified (principal) | CPT/HCPCS: 71046 ==

== ENCOUNTER 2021-01-30 10:01 | Outpatient (CLI) | payer MEDICARE | END 2021-01-30 10:02 | disposition home or self-care (01) | LOC: NM 10:01 | PROVIDERS: ATTEND Internal Medicine Hematology & Oncology | DX: C61 Malignant neoplasm of prostate (principal); C79.51 Secondary malignant neoplasm of bone | CPT/HCPCS: 78306; A9503 ==